=== PATIENT | male | born 1935 | race Caucasian/White ===

== ENCOUNTER 2017-06-19 09:37 | Inpatient (IN) | payer MEDICARE ==
[~2017-06-19] VITALS: Ht 170.2 cm; Wt 65.2 kg
[~2017-06-19 09:37] MED LIST: ASPI-727; CALCIUM PLUS PO; LORA-396 PO; LOVA40TA64; MULT1CAP57
[2017-06-19 09:44] VITALS: Ht 170.2 cm; Wt 65.2 kg
[2017-06-19] MEDS ORDERED: PANTOPRAZOLE 40 MG INJ IV ONE (10:00)
[2017-06-19 10:13] LABS: BASOPHILS % 0.2 % (0.0-2.0); EOSINOPHILS # 0.1 10^3/ul (0.0-0.5); EOSINOPHILS % 0.6 % (0.0-7.0); HEMATOCRIT 36.3 % (42.0-52.0); HEMOGLOBIN 11.1 g/dl (14.0-18.0); LYMPHOCYTES # 1.8 10^3/ul (0.8-2.9); LYMPHOCYTES % 10.4 % (15.0-51.0); MEAN CORPUSCULAR HEMOGLOBIN 25.8 pg (29.0-33.0); MEAN CORPUSCULAR HGB CONC 30.6 g/dl (32.0-37.0); MEAN CORPUSCULAR VOLUME 84.4 fl (82.0-101.0); MEAN PLATELET VOLUME 8.5 fl (7.4-10.4); MONOCYTE # 1.2 10^3/ul (0.3-0.9); MONOCYTES % 6.9 % (0.0-11.0); NEUTROPHIL # 13.7 10^3/ul (1.6-7.5); NEUTROPHILS % 81.5 % (39.0-77.0); PLATELET COUNT 339 10^3/UL (140-415); RED CELL DISTRIBUTION WIDTH 16.7 % (11.5-14.5); WHITE BLOOD COUNT 16.9 10^3/ul (4.8-10.8)
[2017-06-19] MEDS ORDERED: SOD CHLORIDE 0.9% 1,000 ML IV STA (10:16)
[2017-06-19] MEDS ORDERED: ACETAMINOPHEN 325 MG TAB PO PRN ×2 (10:30→13:30)
[2017-06-19] MEDS ORDERED: LORAZEPAM 2 MG INJ IV ONE (10:30)
[2017-06-19] MEDS ORDERED: ONDANSETRON 4 MG INJ IV PRN ×2 (10:30→13:30)
[2017-06-19 10:33] LABS: ALANINE AMINOTRANSFERASE 30 IU/L (13-69); ALBUMIN 3.7 g/dl (3.3-4.9); ALBUMIN/GLOBULIN RATIO 1.08; ALKALINE PHOSPHATASE 109 IU/L (42-121); ANION GAP 13 (8-16); ASPARTATE AMINO TRANSFERASE 23 IU/L (15-46); BILIRUBIN,INDIRECT 0.4 mg/dl (0-1.1); BILIRUBIN,TOTAL 0.4 mg/dl (0.2-1.3); BLOOD UREA NITROGEN 31 mg/dl (7-20); CALCIUM 9.5 mg/dl (8.4-10.2); CARBON DIOXIDE 27 mmol/L (21-31); CHLORIDE 106 mmol/L (97-110); CREATININE 0.79 mg/dl (0.61-1.24); GLUCOSE 101 mg/dl (70-220); INR 1.07; POTASSIUM 4.7 mmol/L (3.5-5.1); PROTIME 13.9 Sec (12.2-14.2); PT RATIO 1.1; SODIUM 141 mmol/L (135-144); TOTAL PROTEIN 7.1 g/dl (6.1-8.1)
[2017-06-19 10:34] LABS: PARTIAL THROMBOPLASTIN TIME 32.6 Sec (25.0-35.0)
--- NOTE | 2017-06-19 10:41 | RADRPT ---
PROCEDURE: XR Chest. CLINICAL INDICATION: Shortness of breath. TECHNIQUE: Single frontal view. COMPARISON: None. FINDINGS: Image is suboptimal due to the head overlying the lung apices. The visualized portions of the lungs are clear. The heart size is normal. There is calcification in the aorta consistent with atherosclerosis There is no pleural effusion. There is no pneumothorax. IMPRESSION: 1. Limited study. 2. Atherosclerosis. 3. Visualized portions of lungs are clear. RPTAT: QQ .Solo Bello MD, Date Time Electronically viewed and signed by .Solo Bello MD, on 06/19/2017 10:41 .R/
[2017-06-19 10:50] LABS: TROPONIN-I < 0.012 ng/ml (0.00-0.12)
[2017-06-19] MEDS ORDERED: OLANZAPINE 10 MG VIAL IM ONE (11:00)
[2017-06-19] MEDS ORDERED: ASPI-664 PO (11:18)
[2017-06-19] MEDS ORDERED: MULTI PO (11:18)
[2017-06-19] MEDS ORDERED: LOVA40TA64 PO (11:18)
[2017-06-19] MEDS ORDERED: AMLO5TAB4 PO (11:19)
[2017-06-19] MEDS ORDERED: ALEN70TA30 PO (11:19)
[2017-06-19] MEDS ORDERED: FURO40TA4 PO (11:20)
[2017-06-19] MEDS ORDERED: CALC500T91 PO (11:20)
[2017-06-19] MEDS ORDERED: CHOL100062 PO (11:23)
[2017-06-19] MEDS ORDERED: POTA8CAP PO (11:24)
[2017-06-19 12:30] VITALS: BP 135/75; RESP 18
[2017-06-19] MEDS ORDERED: NACL 0.9% 3 ML SYG IV SCH (13:30)
--- NOTE | 2017-06-19 13:44 | ERA ---
ER Documentation Chief Complaint Date/Time DATE: 06/19/17 TIME: 13:42 Chief Complaint SENT FROM [facility] FOR HEMATEMEMSIS THIS AM. HPI Patient is a 81-year-old male who presents with coffee-ground emesis. Please note the history and physical exam is limited secondary to the patient's mental status at baseline. The patient was brought in by ambulance. He came from a convalescent home. He had coffee-ground emesis and was sent for admission. His primary doctor is Dr. Frazier. Upon review of old medical records this is the patient's fourth visit to the ER since 2009. ROS All systems reviewed and are negative except as per history of present illness. Medications Home Meds Reported Medications Amlodipine Besylate* (Norvasc*) 5 Mg Tablet, 5 MG PO DAILY, TAB 06/19/17 Lovastatin* (Altoprev*) 40 Mg Tab.sr.24h, 40 MG PO HS, TAB 06/19/17 Discontinued Reported Medications Potassium Chloride* (Potassium Chloride*) 8 Meq Capsule.er, 8 MEQ PO BID, CAP 06/19/17 Cholecalciferol* (Vitamin D3*) 1,000 Unit Tablet, 1000 UNIT PO DAILY, TAB 06/19/17 Calcium Carbonate (Duwa-Shf-866) 500 Mg Tablet, 500 MG PO TID, TAB 06/19/17 Furosemide* (Furosemide*) 40 Mg Tablet, 40 MG PO DAILY, TAB 06/19/17 Alendronate Sodium* (Fosamax*) 70 Mg Tablet, 70 MG PO Q7D, #4 TAB 06/19/17 Multivitamins* (Theragran*) 1 Tab Tab, 1 TAB PO DAILY, TAB 06/19/17 Aspirin (Low Dose Aspirin) 81 Mg Tablet.dr, 81 MG PO DAILY, #30 TAB 06/19/17 [Calcium Plus] No Conflict Check, 1000 U PO DAILY 05/12/12 Lorazepam* (Ativan*) 0.5 Mg Tablet, 0.5 MG PO PRN ANXIETY 05/12/12 Multivitamins W-Minerals (Multivitamin) 1 Cap Capsule 06/26/10 Aspirin (Adult Aspirin) 81 Mg Tab.chew 06/26/10 Lovastatin* (Altoprev*) 40 Mg Tab.sr.24h 06/26/10 Allergies Allergies: Coded Allergies: No Known Allergies (Verified Allergy, Mild, 06/19/17) PMhx/Soc History of Surgery: No Anesthesia Reaction: No Hx Neurological Disorder: Yes (DEMENTIA, HX CVA) Hx Respiratory Disorders: No Hx Cardiac Disorders: Yes (HX HTN, HIGH CHOL, CHF) Hx Psychiatric Problems: Yes (Anxiety) Hx Miscellaneous Medical Probl: No Hx Alcohol Use: No Hx Substance Use: No Hx Tobacco Use: No Smoking Status: Never smoker FmHx Unable to obtain Physical Exam Vitals Vital Signs Date Time Temp Pulse Resp B/P Pulse Ox O2 Delivery O2 Flow Rate FiO2 06/19/17 09:44 98.0 83 16 104/89 100 Physical Exam Const: No acute distress but pale Head: Atraumatic Eyes: Normal Conjunctiva ENT: Normal External Ears, Nose and Mouth. Neck: Full range of motion..~ No meningismus. Resp: Clear to auscultation bilaterally Cardio: Regular rate and rhythm, no murmurs Abd: Soft, non tender, non distended. Normal bowel sounds Skin: Pale skin Back: No midline or flank tenderness Ext: No cyanosis, or edema Neur: Awake but does not respond to voice or commands Result Diagram: 06/19/1794506/19/1746 Results 24 hrs Laboratory Tests Test 06/19/17 09:46 White Blood Count 16.910^3/ul Red Blood Count 4.3010^6/ul Hemoglobin 11.1g/dl Hematocrit 36.3% Mean Corpuscular Volume 84.4fl Mean Corpuscular Hemoglobin 25.8pg Mean Corpuscular Hemoglobin Concent 30.6g/dl Red Cell Distribution Width 16.7% Platelet Count 02857^3/UL Mean Platelet Volume 8.5fl Neutrophils % 81.5% Lymphocytes % 10.4% Monocytes % 6.9% Eosinophils % 0.6% Basophils % 0.2% Nucleated Red Blood Cells % 0.0/100WBC Neutrophils # 13.710^3/ul Lymphocytes # 1.810^3/ul Monocytes # 1.210^3/ul Eosinophils # 0.110^3/ul Basophils # 0.010^3/ul Nucleated Red Blood Cells # 0.010^3/ul Prothrombin Time 13.9Sec Prothrombin Time Ratio 1.1 INR International Normalized Ratio 1.07 Activated Partial Thromboplast Time 32.6Sec Sodium Level 141mmol/L Potassium Level 4.7mmol/L Chloride Level 106mmol/L Carbon Dioxide Level 27mmol/L Anion Gap 13 Blood Urea Nitrogen 31mg/dl Creatinine 0.79mg/dl Glucose Level 101mg/dl Calcium Level 9.5mg/dl Total Bilirubin 0.4mg/dl Direct Bilirubin 0.00mg/dl Indirect Bilirubin 0.4mg/dl Aspartate Amino Transf (AST/SGOT) 23IU/L Alanine Aminotransferase (ALT/SGPT) 30IU/L Alkaline Phosphatase 109IU/L Troponin I < 0.012ng/ml Total Protein 7.1g/dl Albumin 3.7g/dl Globulin 3.40g/dl Albumin/Globulin Ratio 1.08 Current Medications Medications (Trade) Dose Ordered Sig/Kalin Route PRN Reason Start Time Stop Time Status Last Admin Dose Admin Pantoprazole 40 mg 40 mg ONCE ONCE IV 06/19/17 10:00 06/19/17 10:01 DC 06/19/17 10:27 Sodium Chloride (NS) 1,000 ml @ 1,000 mls/hr Q1H STAT IV 06/19/17 10:16 06/19/17 11:15 DC 06/19/17 10:27 Procedures/MDM EKG read by me: Rate/Rhythm: Regular rate and rhythm at a normal rate Intervals: Normal Impression: No evidence of ischemia or arrhythmia PROCEDURE: XR Chest. CLINICAL INDICATION: Shortness of breath. TECHNIQUE: Single frontal view. COMPARISON: None. FINDINGS: Image is suboptimal due to the head overlying the lung apices. The visualized portions of the lungs are clear. The heart size is normal. There is calcification in the aorta consistent with atherosclerosis There is no pleural effusion. There is no pneumothorax. IMPRESSION: 1. Limited study. 2. Atherosclerosis. 3. Visualized portions of lungs are clear. RPTAT: QQ .Solo Bello MD, MD Date Time Electronically viewed and signed by .Solo Bello MD, MD on 06/19/2017 10:41 Patient is a 81-year-old male who presents with coffee-ground emesis. I am concerned about a possible GI bleed and he also has anemia. At this point he does not require blood transfusion but if he drops any further he may require. The patient will be admitted to the primary doctor Dr. Frazier who sent him to the emergency department. The patient will be admitted to a medical surgical bed. He was given 1 L of normal saline for fluid resuscitation as his BUN/ creatinine ratio is greater than 20 showing dehydration. Patient was also given Protonix IV. Departure Diagnosis: Primary Impression: GI bleed Qualified Code: K92.2 - Gastrointestinal hemorrhage, unspecified gastrointestinal hemorrhage type Additional Impression: Hematemesis Qualified Code: K92.0 - Hematemesis without nausea Condition: PARVIZ Marinelli MD Jun 19, 2017 13:44
[2017-06-19] MEDS: DEXTROSE 5%-0.45% NACL 1,000 ML IV SCH (14:29)
[2017-06-19] MEDS ORDERED: PENDING SANTYL ORDER FOR WOUND CARE XX PRN (15:00)
[2017-06-19 15:16] LABS: ADD UMIC YES; UR ASCORBIC ACID 40 mg/dL (NEGATIVE); UR BACTERIA FEW /HPF (NONE SEEN); UR BILIRUBIN (Dip) NEGATIVE (NEGATIVE); UR BLOOD (Dip) NEGATIVE (NEGATIVE); UR CLARITY SLIGHTLY CLOUDY (CLEAR); UR COLOR YELLOW (YELLOW); UR GLUCOSE (Dip) NEGATIVE (NEGATIVE); UR KETONES (Dip) NEGATIVE (NEGATIVE); UR LEUKOCYTE ESTERASE (Dip) 3+ Leu/ul (NEGATIVE); UR NITRITE (Dip) NEGATIVE (NEGATIVE); UR RBC 10 /HPF (0-5); UR SPECIFIC GRAVITY (Dip) 1.019 (1.003-1.030); UR TOTAL PROTEIN (Dip) NEGATIVE (NEGATIVE); UR UROBILINOGEN (Dip) NEGATIVE (NEGATIVE)
--- NOTE | 2017-06-19 18:40 | HP ---
DATE OF ADMISSION: 06/19/2017 REASON FOR ADMISSION: GI bleed. Coffee ground-like emesis. Leukocytosis, dehydration. HISTORY OF PRESENT ILLNESS: The patient is a 81 years old male with advanced dementia, non-ambulatory, who needs help with feeding and is very confused. History of hypertension, dyslipidemia, CHF who reside at the shelter facility at [facility]. The patient was noted to have coffee ground- like emesis. I decided to send him to the hospital for evaluation. Upon evaluation, patient was noted to have abnormal labs. White count is elevated 16.9, hemoglobin 11.1, in addition BUN creatinine was high at 31 and 0.79. The patient does have anemia and has elevated BUN creatinine, we were concerned about upper GI bleed. I consulted Dr. Godoy, the GI specialist and the patient was admitted to the medical-surgical floor as the patient is hemodynamically stable. Upon evaluation of the patient, the patient cannot provide any history. The patient is mumbling, difficult to understand. The patient is admitted for further care. PAST MEDICAL HISTORY: Include osteoporosis, hypertension, CHF, anxiety disorder, dyslipidemia, debilitated state, advanced dementia. SOCIAL HISTORY: No history of tobacco, alcohol, or IV drug use. The patient is a poor historian. Most history is obtained from old records. PAST SURGICAL HISTORY: The patient denies. FAMILY HISTORY: The previously told me that he was with a few kids, but overall is a poor historian. MEDICATIONS: At the shelter facility include the following: Klonopin 0.25 twice daily. Seroquel 25 every morning and every night at bedtime. Zolpidem 5 mg every night as needed. Lorazepam 1 mg every 12 h as needed. Oxygen support as needed. The patient has dysphagia and is on a mechanical soft diet. The patient is on 2.0 three timed daily with meals. Multiple vitamin 1 tablet daily. Aspirin 81 once daily. Pro- Stat 30 mL daily, vitamin D3, 1 tablet daily. Vitamin-C 5 mg daily. Lipitor 20 mg every night at bedtime. Protonix 20 mg daily. Amlodipine 5 mg daily. Colace 100 mg twice daily. Oscal plus-D 1 tablet twice daily. Zofran as needed. Tylenol as needed. Bisacodyl as needed. CODE STATUS: Patient is full code. PHYSICAL EXAMINATION: VITAL SIGNS: Temperature is 98, pulse is 95, respiration 18, blood pressure 141/95. Saturation 98 percent on room air. GENERAL: Patient is pale, temporal wasting. No JVD. CARDIAC: S1, S2. Regular rate and rhythm. LUNGS: Clear. ABDOMEN: Soft. Slight fullness in the left mid abdomen, may be stool. EXTREMITIES: No clubbing, cyanosis, or edema. He is franck his legs at the knees. LABORATORY: White count is high at 16.9, hemoglobin 9.1, hematocrit 26, platelet count 339,00. 92 percent. Chemistry: Sodium 141, potassium 4.7, chloride, bicarb 27, BUN is elevated 21, creatinine 0.7, glucose of 101. LFTs are normal. Albumin 3.7, INR is 1.2. IMAGING: Chest x-ray, limited study, shows atherosclerosis. Visualized portion of the lungs are clear. ASSESSMENT/PLAN: This is a 81-year-old male with history of dementia, hypertension, dyslipidemia, who presents with coffee ground-like emesis. Upper GI bleed. Anemia, dehydration and leukocytosis. 1. Respiratory: O2 support as needed. Aspiration precaution. O2 support will be given as needed. 2. Cardiovascular: Off of blood thinners secondary to gastrointestinal bleed. Vital signs are stable. 3. Gastrointestinal: The patient with upper gastrointestinal bleed. The patient does take aspirin. Other causes for his vomiting may be constipation. We will obtain a KUB. The patient may need an EGD. The patient will be started on Protonix intravenous, as the patient may have peptic ulcer disease, Zoraida-[place] tear, gastritis etc. Hold blood thinners including aspirin. 4. Anemia/dehydration: Patient will be hydrated gently with intravenous fluids. The cause of possible gastrointestinal bleed. 5. Leukocytosis: Will obtain cultures including blood and urine cultures. May consider empiric antibiotics treatment. This may be also be stress induced. 6. The patient was placed on SCDs for deep venous thrombosis prophylaxis. 7. Check stool for occult blood. 8. We will follow up with Gastroenterology recommendations. Dictated By: Hermes Frazier MD /aisha/[place] /Document#: [id number]
[2017-06-19 19:51] VITALS: BP 120/60; RESP 18
[2017-06-19] MEDS: LORAZEPAM 2 MG INJ IV PRN (22:52)
[2017-06-20 01:57] VITALS: BP 127/61; RESP 20
[2017-06-20] MEDS: DEXTROSE 5%-0.45% NACL 1,000 ML IV SCH ×2 (02:44→14:53)
--- NOTE | 2017-06-20 04:18 | CONS ---
DATE OF ADMISSION: 06/19/2017 DATE OF CONSULTATION: 06/19/2017 Dear Hermes: Thank you for the referral. REASON FOR CONSULTATION: Hematemesis. HISTORY OF PRESENT ILLNESS: A 81-year-old male with a history of CVA, dementia, was referred to the hospital for hematemesis. This was noticed at retirement. No further information could be obtained from the patient. Patient is demented. MEDICATION: All his home medications were reviewed. He was on: 1. Fosamax. 2. Aspirin. ALLERGIES: NONE. SOCIAL HISTORY: Does not smoke or drink. PAST MEDICAL HISTORY: Dementia, CVA, hypertension, high cholesterol, anxiety. REVIEW OF SYSTEMS: Unable to do. PHYSICAL EXAMINATION: GENERAL APPEARANCE: Alert, awake, not in distress, appears to be confused, answering to the questions at times by nodding his head. HEART: No murmur, gallop, or click. LUNGS: Clear. ABDOMEN: Benign. EXTREMITIES: No edema. CENTRAL NERVOUS SYSTEM: Moves all the extremities, is contracted, is somewhat rigid. LABORATORY: Hematocrit is 36, BUN is 31, WBC is 16.9. IMPRESSION: 1. Hematemesis. Rule out reflux esophagitis. Rule out peptic ulcer disease. 2. Dehydration. 3. Cerebrovascular accident. 4. Dementia. 5. Hypertension. 6. Osteoporosis. PLAN: At this point is to start the patient on PPI. Continue IV hydration. Aspiration precaution. We will monitor his hemoglobin and hematocrit. If there is a significant drop in hematocrit, we will proceed with EGD. Dictated By: Yoshi Godoy MD /aisha/kasandra /Document#: [id number] CC: Hermes Frazier MD;*[facility]*
[2017-06-20] MEDS: PANTOPRAZOLE 40 MG INJ IV SCH (06:06)
[2017-06-20 06:12] LABS: BASOPHILS % 0.5 % (0.0-2.0); EOSINOPHILS # 0.3 10^3/ul (0.0-0.5); EOSINOPHILS % 3.9 % (0.0-7.0); LYMPHOCYTES # 1.9 10^3/ul (0.8-2.9); LYMPHOCYTES % 23.7 % (15.0-51.0); MEAN CORPUSCULAR HEMOGLOBIN 26.6 pg (29.0-33.0); MEAN CORPUSCULAR HGB CONC 32.1 g/dl (32.0-37.0); MEAN CORPUSCULAR VOLUME 82.8 fl (82.0-101.0); MEAN PLATELET VOLUME 8.7 fl (7.4-10.4); MONOCYTE # 0.7 10^3/ul (0.3-0.9); MONOCYTES % 8.9 % (0.0-11.0); NEUTROPHIL # 5.1 10^3/ul (1.6-7.5); NEUTROPHILS % 62.8 % (39.0-77.0); PLATELET COUNT 274 10^3/UL (140-415); RED BLOOD COUNT 3.38 10^6/ul (4.70-6.10); RED CELL DISTRIBUTION WIDTH 16.3 % (11.5-14.5); WHITE BLOOD COUNT 8.2 10^3/ul (4.8-10.8)
[2017-06-20 06:33] LABS: IRON 11 ug/dl (35-150)
[2017-06-20 06:43] LABS: TOTAL IRON BINDING CAPACITY 261 ug/dl (241-421)
[2017-06-20 06:51] LABS: ALBUMIN 2.6 g/dl (3.3-4.9); ALBUMIN/GLOBULIN RATIO 0.81; BILIRUBIN,INDIRECT 0.2 mg/dl (0-1.1); BILIRUBIN,TOTAL 0.2 mg/dl (0.2-1.3); CALCIUM 8.8 mg/dl (8.4-10.2); CREATININE 0.71 mg/dl (0.61-1.24); PHOSPHORUS 3.4 mg/dl (2.5-4.9); TOTAL PROTEIN 5.8 g/dl (6.1-8.1)
[2017-06-20 07:35] VITALS: BP 129/67; RESP 18
--- NOTE | 2017-06-20 11:17 | CONS ---
Date/Time of Note Date/Time of Note DATE: 06/20/17 TIME: 11:17 Assessment/Plan Assessment/Plan Additional Assessment/Plan IMPRESSION: 1. Hematemesis. Rule out reflux esophagitis. Rule out peptic ulcer disease. 2. Dehydration. 3. Cerebrovascular accident. 4. Dementia. 5. Hypertension. 6. Osteoporosis. 7. Anemia with significant drop in hematocrit Plan We will proceed with EGD tomorrow Continue PPI and monitor H&H Consultation Date/Type/Reason Admit Date/Time Jun 19, 2017 at 10:26 Initial Consult Date 24 HR Interval Summary Constitutional: no complaints Exam/Review of Systems Vital Signs Vitals Vital Signs Date Time Temp Pulse Resp B/P Pulse Ox O2 Delivery O2 Flow Rate FiO2 06/20/17 07:35 97.8 81 18 129/67 96 06/19/17 11:52 Room Air Intake and Output 06/19/17 06/19/17 06/20/17 15:00 23:00 07:00 Intake Total 320 ml 1280 ml Output Total 401 ml Balance -81 ml 1280 ml Exam Constitutional: alert, oriented, well developed Psych: nl mood/affect, no complaints Head: atraumatic, normocephalic Eyes: EOMI, PERRL, nl conjunctiva, nl lids, nl sclera ENMT: nl external ears & nose, nl lips & teeth, nl nasal mucosa & septum Neck: non-tender, supple Respiratory: clear to auscultation, normal air movement Cardiovascular: nl pulses, regular rate and rhythm Gastrointestinal: nl liver, spleen, non-tender, soft Musculoskeletal: nl extremities to inspection, nl gait and stance Extremities: normal pulses Neurological: METAL PATTERNMAKER II-XII intact, nl mental status, nl speech, nl strength Skin: nl turgor, No rash or lesions Lymph: nl lymph nodes Results Result Diagram: 06/20/17 0539 06/20/17 0539 Results 24 hrs Laboratory Tests Test 06/19/17 14:11 06/19/17 14:50 06/20/17 00:45 06/20/17 05:39 Vitamin B12 Level 632 Urine Color YELLOW Urine Clarity SLIGHTLY CLOUDY A Urine pH 7.0 Urine Specific [place] 1.019 Urine Ketones NEGATIVE Urine Nitrite NEGATIVE Urine Bilirubin NEGATIVE Urine Urobilinogen NEGATIVE Urine Leukocyte Esterase 3+ H Urine Microscopic RBC 10 H Urine Microscopic WBC 35 H Urine Bacteria FEW A Urine Hemoglobin NEGATIVE Urine Glucose NEGATIVE Urine Total Protein NEGATIVE Stool Occult Blood NEGATIVE White Blood Count 8.2 # Red Blood Count 3.38 #L Hemoglobin 9.0 L Hematocrit 28.0 #L Mean Corpuscular Volume 82.8 Mean Corpuscular Hemoglobin 26.6 L Mean Corpuscular Hemoglobin Concent 32.1 Red Cell Distribution Width 16.3 H Platelet Count 274 Mean Platelet Volume 8.7 Neutrophils % 62.8 Lymphocytes % 23.7 Monocytes % 8.9 Eosinophils % 3.9 Basophils % 0.5 Nucleated Red Blood Cells % 0.0 Neutrophils # 5.1 Lymphocytes # 1.9 Monocytes # 0.7 Eosinophils # 0.3 Basophils # 0.0 Nucleated Red Blood Cells # 0.0 Sodium Level 138 Potassium Level 4.0 Chloride Level 110 Carbon Dioxide Level 24 Anion Gap 8 Blood Urea Nitrogen 19 # Creatinine 0.71 Glucose Level 93 Calcium Level 8.8 Phosphorus Level 3.4 Magnesium Level 2.0 Iron Level 11 L Total Iron Binding Capacity 261 Percent Iron Saturation 4 L Total Bilirubin 0.2 Direct Bilirubin 0.00 Indirect Bilirubin 0.2 Aspartate Amino Transf (AST/SGOT) 19 Alanine Aminotransferase (ALT/SGPT) 27 Alkaline Phosphatase 76 Total Protein 5.8 #L Albumin 2.6 #L Globulin 3.20 Albumin/Globulin Ratio 0.81 Medications Medications Current Medications Dextrose/Sodium Chloride (D5-1/2ns) 1,000 ml @ 80 mls/hr [id number] IV Last administered on 06/20/17 02:44; Admin Dose 80 MLS/HR; Start 06/19/17 at 13:25 Ondansetron HCl (Zofran Inj) 4 mg Q6H PRN IV NAUSEA AND/OR VOMITING; Start 06/19/17 at 13:30 Acetaminophen (Tylenol Tab) 650 mg Q6H PRN PO PAIN LEVEL 1-3 OR FEVER; Start 06/19/17 at 13:30 Morphine Sulfate (morphine) 2 mg Q4H PRN IV SEVERE PAIN LEVEL 7-10; Start 06/19 at 13:30 Pantoprazole (Protonix Iv) 40 mg DAILY@06 IV Last administered on 06/20/17 06: 06; Admin Dose 40 MG; Start 06/20/17 at 06:00 Lorazepam (Ativan) 0.5 mg Q6H PRN IV anxiety Last administered on 10/2/17at 22: 52; Admin Dose 0.5 MG; Start 06/19/17 at 14:00 Miscellaneous Information (Pending Santyl Order For Wound Care) This patient burnham... PRN PRN XX WOUND CARE; Start 06/19/17 at 15:00 YULI CABALLERO MD Jun 20, 2017 11:17
[2017-06-20 13:08] VITALS: BP 145/68; RESP 20
[2017-06-20] MEDS: LORAZEPAM 2 MG INJ IV PRN (13:38)
[2017-06-20] MEDS: morphine 2 MG INJ IV PRN ×2 (14:53→21:51)
[2017-06-20] MEDS: CEFTRIAXONE 1 GM/50 ML (PMX) 50 ML IVPB SCH (15:39)
--- NOTE | 2017-06-20 17:31 | PN ---
DATE: 06/20/2017 SUBJECTIVE: The patient's hemoglobin dropped from 11.1 to 9.0. White count is now normal at 8, but this patient's UA did show +2 leukocyte esterase, WBC 35, suggestive of UTI. The patient is on a clear liquid diet. Urine culture shows gram-negative rods. The patient is to undergo EGD in the a.m. secondary to upper GI bleed. PHYSICAL EXAM: VITALS: Temperature 98.3, pulse 74, respirations 20, blood pressure 145/68, saturation 96 percent. GENERAL: The patient is in no acute distress. The patient is pale. HEART: Cardiovascular S1 and S2. Regular rate. LUNGS: Clear. ABDOMEN: Soft. Slightly tender upon deep palpation. EXTREMITIES: No clubbing, cyanosis, or edema. LABS: White count is 8.2, hemoglobin 9, hematocrit 28, platelet count 274, neutrophils 63 percent, eosinophils 24 percent. Chemistry, sodium 138, potassium 4.0, chloride 110, bicarb 24, BUN 19, creatinine 0.71, and glucose of 93. Iron is low at 11 percent. Saturation is very low at 4, suggestive of iron deficiency anemia. B12 632. Fecal occult blood was negative. UA was positive. MRSA screening is pending. Urine culture is positive for gram-negative rods. Blood culture is negative. MEDICATIONS: 1. Protonix 40 IV daily. 2. Ativan 0.5 mg q.6 h p.r.n. 3. Zofran as needed. 4. Tylenol as needed. 5. Morphine p.r.n. 6. The patient is on D5 half-normal saline at 80 mL/h. ASSESSMENT AND PLAN: This is a 81-year-old male with a history of dementia, hypertension, and dyslipidemia who presented with coffee-grounds emesis, likely upper GI bleed. Hemoglobin and hematocrit is trending down. He also was found to have a urinary tract infection. 1. Respiratory. O2 support as needed. Aspiration precautions. 2. Cardiovascular. Off blood thinners secondary to gastrointestinal bleed. Vitals are otherwise stable. 3. Gastrointestinal. Patient with iron deficiency anemia, to proceed with EGD in the a.m. Monitor hemoglobin and hematocrit. May consider blood transfusion if further drop in hemoglobin. 4. Dehydration. Responded well to fluids, likely due to blood loss. 5. Leukocytosis with evidence of urinary tract infection. We will start the patient on Rocephin 1 gram q.24 hours. Follow up urine culture results. Continue sequential compression devices for deep venous thrombosis prophylaxis and Protonix for 6. gastrointestinal prophylaxis. 7. The patient is to be nothing by mouth overnight and plan for EGD in the a.m. 8. We will follow. Dictated By: Hermes Frazier MD /aisha/kristy /Document#: [id number]
[2017-06-20 20:00] VITALS: BP 148/74; RESP 18
[2017-06-21] VITALS (10 sets, daily range): BP systolic 126–153; BP diastolic 75–94; PULSE 68–74; RESP 16–20
[2017-06-21] MEDS: LORAZEPAM 2 MG INJ IV PRN ×2 (03:26→18:05)
[2017-06-21] MEDS: PANTOPRAZOLE 40 MG INJ IV SCH (06:08)
[2017-06-21] MEDS: DEXTROSE 5%-0.45% NACL 1,000 ML IV SCH ×2 (06:09→09:06)
[2017-06-21 06:23] LABS: BASOPHILS % 0.5 % (0.0-2.0); EOSINOPHILS # 0.3 10^3/ul (0.0-0.5); EOSINOPHILS % 3.9 % (0.0-7.0); HEMATOCRIT 30.9 % (42.0-52.0); HEMOGLOBIN 9.6 g/dl (14.0-18.0); LYMPHOCYTES # 1.5 10^3/ul (0.8-2.9); MEAN CORPUSCULAR HEMOGLOBIN 26.3 pg (29.0-33.0); MEAN CORPUSCULAR HGB CONC 31.1 g/dl (32.0-37.0); MEAN CORPUSCULAR VOLUME 84.7 fl (82.0-101.0); MEAN PLATELET VOLUME 8.7 fl (7.4-10.4); MONOCYTE # 0.8 10^3/ul (0.3-0.9); MONOCYTES % 11.4 % (0.0-11.0); NEUTROPHIL # 4.1 10^3/ul (1.6-7.5); NEUTROPHILS % 61.7 % (39.0-77.0); PLATELET COUNT 280 10^3/UL (140-415); RED BLOOD COUNT 3.65 10^6/ul (4.70-6.10); RED CELL DISTRIBUTION WIDTH 16.2 % (11.5-14.5); WHITE BLOOD COUNT 6.6 10^3/ul (4.8-10.8)
[2017-06-21 06:48] LABS: MAGNESIUM 1.9 mg/dl (1.7-2.5); PHOSPHORUS 3.5 mg/dl (2.5-4.9)
[2017-06-21 06:54] LABS: CALCIUM 8.7 mg/dl (8.4-10.2); CREATININE 0.7 mg/dl (0.61-1.24); POTASSIUM 3.8 mmol/L (3.5-5.1)
[2017-06-21] MEDS: morphine 2 MG INJ IV PRN (10:03)
[2017-06-21] MEDS ORDERED: PROPOFOL 40 ML ONE (12:03)
[2017-06-21] MEDS ORDERED: LIDOCAINE 2% (SDV) 5 ML INJ ONE (12:03)
--- NOTE | 2017-06-21 12:31 | OPPN ---
Date/Time of Note Date/Time of Note DATE: 06/21/17 TIME: 12:30 Proc Note GI Procedure Date 06/21/17 Pre-procedure Diagnosis Upper GI bleeding Post-procedure Diagnosis Esophageal ulceration Gastritis Procedure Performed: Endoscopy Surgeon see signature line Kitchen Runner none Anesthesia Type: MAC Tourniquet Time none EBL none Transfusion required none Biopsy 1: 3 biopsies obtained from the stoma Grafts/Implants none Tubes/Drains none Complication(s) none Pt Condition post procedure: stable Disposition: PACU, other (To the floor) Indications: persistent vomiting Operative\Procedure Findings EGD with biopsy Procedure Description See dictation YULI CABALLERO MD Jun 21, 2017 12:31
[2017-06-21] MEDS ORDERED: FENTAnyl 50 MCG/ML VIAL ONE (12:42)
[2017-06-21] MEDS ORDERED: FENTAnyl 50 MCG/ML VIAL IV SCH (12:49)
[2017-06-21] MEDS ORDERED: TRIMETHOBENZAMIDE 100 MG/ML VIAL IM PRN (13:00)
[2017-06-21] MEDS: CEFTRIAXONE 1 GM/50 ML (PMX) 50 ML IVPB SCH (15:28)
[2017-06-21] MEDS ORDERED: LORAZEPAM 1 MG TAB PO PRN (19:30)
[2017-06-21] MEDS ORDERED: ZOLPIDEM 5 MG TAB PO PRN (19:30)
[2017-06-21] MEDS: FERROUS SULFATE (EC) 325 MG TAB PO SCH (21:49)
[2017-06-21] MEDS: QUETIAPINE 25 MG TAB PO SCH (21:49)
[2017-06-21] MEDS: clonAZEPAM 0.5 MG TAB PO SCH (21:50)
[2017-06-22 02:00] VITALS: BP 120/82; RESP 20
[2017-06-22 06:12] LABS: BASOPHILS % 0.4 % (0.0-2.0); EOSINOPHILS # 0.2 10^3/ul (0.0-0.5); EOSINOPHILS % 3.2 % (0.0-7.0); HEMATOCRIT 32.4 % (42.0-52.0); LYMPHOCYTES # 1.8 10^3/ul (0.8-2.9); LYMPHOCYTES % 25.6 % (15.0-51.0); MEAN CORPUSCULAR HEMOGLOBIN 25.7 pg (29.0-33.0); MEAN CORPUSCULAR HGB CONC 30.9 g/dl (32.0-37.0); MEAN CORPUSCULAR VOLUME 83.3 fl (82.0-101.0); MEAN PLATELET VOLUME 8.7 fl (7.4-10.4); MONOCYTE # 0.8 10^3/ul (0.3-0.9); MONOCYTES % 10.6 % (0.0-11.0); NEUTROPHIL # 4.2 10^3/ul (1.6-7.5); NEUTROPHILS % 59.9 % (39.0-77.0); PLATELET COUNT 289 10^3/UL (140-415); RED BLOOD COUNT 3.89 10^6/ul (4.70-6.10); RED CELL DISTRIBUTION WIDTH 16.2 % (11.5-14.5); WHITE BLOOD COUNT 7.1 10^3/ul (4.8-10.8)
[2017-06-22] MEDS: PANTOPRAZOLE (EC) 40 MG TAB PO SCH ×2 (06:32→17:31)
[2017-06-22 06:52] LABS: CREATININE 0.72 mg/dl (0.61-1.24); POTASSIUM 3.6 mmol/L (3.5-5.1)
[2017-06-22 07:02] LABS: MAGNESIUM 1.9 mg/dl (1.7-2.5); PHOSPHORUS 3.8 mg/dl (2.5-4.9)
[2017-06-22 07:53] VITALS: BP 142/85; RESP 18
--- NOTE | 2017-06-22 08:41 | PN ---
DATE: 06/21/2017 SUBJECTIVE: Patient seen status post EGD which showed esophageal ulceration and gastritis. Recomme ndation is to place the patient on proton pump inhibitor. Follow up biopsy. PHYSICAL EXAMINATION: VITAL SIGNS: Temperature 97.9, pulse 74, respiration 18, blood pressure 146/82, saturation 98% on 2 liters. GENERAL: No acute distress. The patient is anxious, lying in the position. CARDIOVASCULAR: S1, S2, regular rate. LUNGS: Clear. ABDOMEN: Soft, nontender. EXTREMITIES: No clubbing, cyanosis, or edema. LABORATORY DATA: Urine culture did show Proteus mirabilis sensitive to cefotaxime. MRSA of the brian es negative. Blood cultures negative. White count is 6.6, hemoglobin 9.6, hematocrit 31, platelet count 280 with normal differential. Chemistry: Sodium 138, potassium 3.8, chloride 100, bicarbonat e 26, BUN 11, creatinine 0.7, glucose of 122. Iron levels are low. MEDICATIONS: 1. Rocephin 1 g every 24 hours. 2. Protonix 40 IV daily. 3. Ativan p.r.n. 4. Zofran p.r.n. 5. Tylenol p.r.n. 6. Morphine p.r.n. 7. D5 half normal saline at 60 mL an hour. ASSESSMENT AND PLAN: This is a 81-year-old male with history of dementia, hypertension, dyslipidemi a, presented with coffee-ground emesis and was found with likely upper gastrointestinal bleed with e vidence of significant anemia, also was found to have urinary tract infection. 1. Respiratory, O2 support as needed. Recommend head elevation. This patient has risk for ulcers as he has gastroesophageal reflux disease. 2. Cardiovascular. Off blood thinner secondary to gastrointestinal bleed. Continue SCDs. 3. Gastrointestinal: We will start the patient on iron supplement. Patient will be placed on PPI for esophageal ulcers. 4. Dehydration, status post fluid hydration. Diet to be advanced as patient previously been on mec hanical soft no added salt diet. 5. Urinary tract infection. Continue Rocephin. 6. Disposition: To half-way facility in the a.m. Follow up labs. 7. Anxiety disorder, likely from his advanced dementia. We will restart him on his antipsychotics. The patient has been on Seroquel and Ativan. We will follow. Dictated By: AUGUSTINA URIBE/LUIS Conf#: [id number] [facility]#: [id number]
[2017-06-22] MEDS: clonAZEPAM 0.5 MG TAB PO SCH ×2 (08:54→20:08)
[2017-06-22] MEDS: FERROUS SULFATE (EC) 325 MG TAB PO SCH ×2 (08:54→20:08)
[2017-06-22] MEDS: QUETIAPINE 25 MG TAB PO SCH ×2 (08:54→20:08)
--- NOTE | 2017-06-22 11:38 | CONS ---
Date/Time of Note Date/Time of Note DATE: 06/22/17 TIME: 11:37 Assessment/Plan Assessment/Plan Additional Assessment/Plan Additional Assessment/Plan IMPRESSION: 1. Hematemesis. Injury to esophageal ulceration 2. Dehydration. 3. Cerebrovascular accident. 4. Dementia. 5. Hypertension. 6. Osteoporosis. 7. Anemia with significant drop in hematocrit 8. Esophageal ulceration Plan Elevation of the head and by 45 all the time Continue PPI and monitor H&H Consultation Date/Type/Reason Admit Date/Time Jun 19, 2017 at 10:26 24 HR Interval Summary Constitutional: improved, no complaints Exam/Review of Systems Vital Signs Vitals Vital Signs Date Time Temp Pulse Resp B/P Pulse Ox O2 Delivery O2 Flow Rate FiO2 06/22/17 07:53 98.7 87 18 142/85 95 06/21/17 12:53 Nasal Cannula 2.0 Intake and Output 06/21/17 06/21/17 06/22/17 15:00 23:00 07:00 Intake Total 1070 ml 200 ml Balance 1070 ml 200 ml Exam Constitutional: alert, oriented, well developed Psych: nl mood/affect, no complaints Head: atraumatic, normocephalic Eyes: EOMI, PERRL, nl conjunctiva, nl lids, nl sclera ENMT: nl external ears & nose, nl lips & teeth, nl nasal mucosa & septum Neck: non-tender, supple Respiratory: clear to auscultation, normal air movement Cardiovascular: nl pulses, regular rate and rhythm Gastrointestinal: nl liver, spleen, non-tender, soft Musculoskeletal: nl extremities to inspection, nl gait and stance Extremities: normal pulses Neurological: [employer] II-XII intact, nl mental status, nl speech, nl strength Skin: nl turgor, No rash or lesions Lymph: nl lymph nodes Results Result Diagram: 06/22/17 0535 06/22/17 0535 Results 24 hrs Laboratory Tests Test 06/22/17 05:35 White Blood Count 7.1 Red Blood Count 3.89 L Hemoglobin 10.0 L Hematocrit 32.4 L Mean Corpuscular Volume 83.3 Mean Corpuscular Hemoglobin 25.7 L Mean Corpuscular Hemoglobin Concent 30.9 L Red Cell Distribution Width 16.2 H Platelet Count 289 Mean Platelet Volume 8.7 Neutrophils % 59.9 Lymphocytes % 25.6 Monocytes % 10.6 Eosinophils % 3.2 Basophils % 0.4 Nucleated Red Blood Cells % 0.0 Neutrophils # 4.2 Lymphocytes # 1.8 Monocytes # 0.8 Eosinophils # 0.2 Basophils # 0.0 Nucleated Red Blood Cells # 0.0 Sodium Level 139 Potassium Level 3.6 Chloride Level 109 Carbon Dioxide Level 24 Anion Gap 10 Blood Urea Nitrogen 8 Creatinine 0.72 Glucose Level 88 Calcium Level 9.0 Phosphorus Level 3.8 Magnesium Level 1.9 Medications Medications Current Medications Ondansetron HCl (Zofran Inj) 4 mg Q6H PRN IV NAUSEA AND/OR VOMITING; Start 06/19/17 at 13:30 Acetaminophen (Tylenol Tab) 650 mg Q6H PRN PO PAIN LEVEL 1-3 OR FEVER; Start 06/19/17 at 13:30 Morphine Sulfate (morphine) 2 mg Q4H PRN IV SEVERE PAIN LEVEL 7-10 Last administered on 06/21/17 10:03; Admin Dose 2 MG; Start 06/19/17 at 13:30 Lorazepam (Ativan) 0.5 mg Q6H PRN IV anxiety Last administered on 06/21/17 18: 05; Admin Dose 0.5 MG; Start 06/19/17 at 14:00 Miscellaneous Information This patient [place]... PRN PRN XX WOUND CARE; Start 06/19 at 15:00 Ceftriaxone Sodium (Rocephin) 50 ml @ 100 mls/hr Q24H IVPB Last administered on 06/21/17 15:28; Admin Dose 100 MLS/HR; Start 06/20/17 at 15:30 Pantoprazole (Protonix Tab) 40 mg BID@06,18 PO Last administered on 06/22/17 06:32; Admin Dose 40 MG; Start 06/22/17 at 06:00 Quetiapine Fumarate (Seroquel) 25 mg BID PO Last administered on 06/22/17 08: 54; Admin Dose 25 MG; Start 06/21/17 at 21:00 Lorazepam (Ativan) 1 mg Q8H PRN PO ANXIETY; Start 06/21/17 at 19:30 Zolpidem Tartrate (Ambien) 5 mg HS PRN PO INSOMNIA; Start 06/21/17 at 19:30 Clonazepam (Klonopin) 0.25 mg BID PO Last administered on 06/22/17 08:54; Admin Dose 0.25 MG; Start 06/21/17 at 21:00 Ferrous Sulfate (Ferrous Sulfate (Ec)) 325 mg BID PO Last administered on 08:54; Admin Dose 325 MG; Start 06/21/17 at 21:00 YULI CABALLERO MD Jun 22, 2017 11:38
[2017-06-22] MEDS ORDERED: COLLAGENASE 30 GM TUBE TOP PRN (12:00)
[2017-06-22] MEDS ORDERED: COLLAGENASE 30 GM TUBE TOP SCH (13:00)
--- NOTE | 2017-06-22 13:39 | GILP ---
DATE OF PROCEDURE: PROCEDURE PERFORMED: EGD with biopsy. INDICATION: A 81-year-old male undergoing this procedure for upper GI bleeding manifested in the fo rm of coffee-ground colored emesis and also significant drop in hematocrit. INFORMED CONSENT: The risk of the procedure, related and unrelated complications, anesthetic risk, alternatives discussed. Informed consent was obtained. DESCRIPTION OF PROCEDURE: The patient was brought to the GI lab, sedated by Dr. Nj. After obta ining sedation, scope was passed with much ease into esophagus. He had a well-defined ulcer which w as about 0.5 cm in diameter and length was 3 cm in length in the distal part of the esophagus. Ther e was also a linear ulcer on the opposite wall. Stomach mucosa revealed gastritis. Patient had a 2 to 3 cm hiatal hernia. Duodenum, first and second part including ampulla appeared normal. Retrove rsion done, hiatal hernia confirmed. Three biopsies were obtained, 2 from the subepithelial nodule which was in the antrum and 2 from the body of the stomach. A total of 4 biopsies were obtained. Sc ope was removed with good patient tolerance. No bleeding was noted. 1. Esophageal ulcer which is the cause of bleeding, LA class D. 2. Hiatal hernia 3 cm. 3. Subepithelial nodule in the antrum. It was firm in consistency and constantly moving. 4. Normal duodenum. PLAN: Start the patient on PPI. Dictated By: YULI RUBIN/LUIS Conf#: [id number] DID#: [id number] CC: AUGUSTINA GOMEZ MD;*EndCC*
[2017-06-22 14:39] VITALS: BP 121/71; RESP 18
[2017-06-22] MEDS: CEFTRIAXONE 1 GM/50 ML (PMX) 50 ML IVPB SCH (16:19)
--- NOTE | 2017-06-22 17:45 | PDOCDIS ---
Discharge Instructions CONDITION Patient Condition: Stable HOME CARE INSTRUCTIONS: Special Diet: mechanical soft FOLLOW UP/APPOINTMENTS Follow-up Plan [facility], see reconciliation, keep head elevated 45 degrees. AUGUSTINA GOMEZ MD Jun 22, 2017 17:45
[2017-06-22 19:48] VITALS: BP 131/63; RESP 20
--- NOTE | 2017-06-23 15:21 | DS ---
DATE OF ADMISSION: 06/19/2017 DATE OF DISCHARGE: 06/22/2017 REASON FOR ADMISSION: GI bleed, coffee-ground emesis, leukocytosis, dehydration. HOSPITAL COURSE: The patient is a 81-year-old male with advanced dementia, nonambulatory, who needs help with feeding and very confused. He has history of hypertension, dyslipidemia, CHF a nd resides at the [facility] facility at [facility]. The patient was noted to have coffee -ground emesis and he was transferred to [facility]. Upon presentation, the patie nt was noted to be anemic with hemoglobin of 11.1 and BUN and creatinine elevated at 31/0.79. Gabbye nt was hydrated. The hemoglobin dropped to 9.0. The patient was seen by Dr. Yoshi Godoy and the patient underwent an EGD. EGD showed esophageal ulcerations and gastritis. Biopsy was done. Patho logy report came back showing thick mucosa showing minimal patchy chronic inflammation of superficia l lamina propria. No H. pylori identified. No submucosal lesion. There is no evidence of malignan cy. The patient was started on PPI and the etiology of bleeding causing esophageal ulceration, most ly because patient is lying flat all the time and eating in that position. The patient needs to harlan p his head elevated. We will put him on PPI b.i.d. bolus dosing for now. In addition, he was found to have urinary tract infection and urine culture showed Proteus mirabilis greater than 100,000 str ep sensitive to cefotaxime and Levaquin. He was on Rocephin throughout his stay. The patient is no w stable. He is eating. I did start him back on some psychiatric medication. The patient was very anxious. DISCHARGE MEDICATIONS: He will be discharged with: 1. Tylenol 650 q.6h. p.r.n. 2. Klonopin 0.25 b.i.d. 3. Santyl as directed. 4. Ferrous sulfate 325 mg b.i.d. 5. Ativan 1 mg q.8h. p.r.n. 6. Protonix 40 mg b.i.d. 7. Seroquel 25 b.i.d. 8. Ambien 5 mg at bedtime p.r.n. insomnia. FINAL DIAGNOSES: 1. Gastrointestinal bleed. 2. Esophageal ulcerations and gastritis. 3. Anemia, iron deficiency, iron supplements now are being given. 4. Dehydration. 5. Urinary tract infection, organism is Proteus mirabilis. 6. Dementia. 7. Gastroesophageal reflux disease. 8. Psychiatric disorder. The patient will be discharged back to [facility] in fair condition. We will also prescribe him antibiotics orally with Levaquin 500 mg daily x7 days to finish a course of UTI. CONDITION ON DISCHARGE: Fair. Dictated By: AUGUSTINA URIBE/LUIS Conf#: [id number] DID#: [id number]
== END 2017-06-22 21:05 | DRG 381 ==
LOC: E/R 09:37 → MS2 10:26
PROVIDERS: ADMIT Internal Medicine; ATTEND Internal Medicine
PROC: 0DB78ZX Excision of Stomach, Pylorus, Via Natural or Artificial Opening Endoscopic, Diagnostic (ICD-10-PCS; 2017-06-21)
PROC: 0DB68ZX Excision of Stomach, Via Natural or Artificial Opening Endoscopic, Diagnostic (ICD-10-PCS; principal; 2017-06-21 12:00)
DX: K22.11 Ulcer of esophagus with bleeding (principal); N39.0 Urinary tract infection, site not specified; F03.90 Unspecified dementia, unspecified severity, without behavioral disturbance, psychotic disturbance, mood disturbance, and anxiety; F05 Delirium due to known physiological condition; E86.0 Dehydration; R13.10 Dysphagia, unspecified; B96.4 Proteus (mirabilis) (morganii) as the cause of diseases classified elsewhere; D50.9 Iron deficiency anemia, unspecified; E78.5 Hyperlipidemia, unspecified; F41.9 Anxiety disorder, unspecified; F99 Mental disorder, not otherwise specified; I10 Essential (primary) hypertension; K29.70 Gastritis, unspecified, without bleeding; K44.9 Diaphragmatic hernia without obstruction or gangrene; K21.9 Gastro-esophageal reflux disease without esophagitis; K31.89 Other diseases of stomach and duodenum; M81.0 Age-related osteoporosis without current pathological fracture; R53.81 Other malaise; Z86.73 Personal history of transient ischemic attack (TIA), and cerebral infarction without residual deficits
CPT/HCPCS: 36415; 71010; 80048; 80053; 81001; 82270; 82607; 83540; 83735; 84100; 84484; 85025; 85610; 85730; 86850; 86900; 86901; 87040; 87081; 87086; 88305; 88312; 93005; 96372; 96374; 96375; A4310; C9113; J0696; J2060; J2270; J3010; J7030; J7042